=== PATIENT | male | born 1960 | race Caucasian/White ===

== ENCOUNTER 2021-11-02 11:57 | Emergency (ER) | payer OTHER ==
[~2021-11-02] VITALS: Ht 175.3 cm; Wt 83.9 kg
[2021-11-02] MEDS ORDERED: ALBUTEROL SULFATE HFA 8GM INHALATION AEROSOL INH PRN (12:30)
[2021-11-02 12:49] LABS: BASOPHILS % 0.3 % (0.0-1.0); EOSINOPHILS % 0.1 % (0.0-6.0); HEMATOCRIT 48.6 % (38.2-49.6); HEMOGLOBIN 15.9 g/dL (14.0-18.0); LYMPHOCYTES # (AUTO) 1.2 (1.0-3.2); MEAN CORPUSCULAR HEMOGLOBIN 27.9 pg (28-32); MEAN CORPUSCULAR HGB CONC 32.7 g/dL (31-35); MEAN CORPUSCULAR VOLUME 85.3 fL (81-99); MONOCYTES # (AUTO) 0.7 (0.2-0.8); MONOCYTES % 9.5 % (4.4-11.3); NEUTROPHILS # (AUTO) 5.7 (2.1-6.9); NEUTROPHILS % 73.6 % (38.7-80.0); PLATELET COUNT 322 x10e3/uL (140-360); RED CELL DISTRIBUTION WIDTH 12.5 % (11.7-14.4)
[2021-11-02 13:08] LABS: ALBUMIN 3.3 g/dL (3.5-5.0); ALBUMIN/GLOBULIN RATIO 0.8 (0.8-2.0); ANION GAP 14.1 mmol/L (8-16); CALCIUM 9.7 mg/dL (8.4-10.2); CREATININE, SERUM 0.91 mg/dL (0.72-1.25); POTASSIUM 4.1 mmol/L (3.5-5.1)
[2021-11-02 14:35] LABS: INR 1.05; PROTHROMBIN TIME 14.4 seconds (11.9-14.5)
[2021-11-02] MEDS ORDERED: BENZONATATE200 MG PO (14:39)
[2021-11-02] MEDS ORDERED: DECADRON4 M1 PO (14:39)
[2021-11-02] MEDS ORDERED: PROAIR HFA INH8.5 GM PO (14:39)
[2021-11-02] MEDS ORDERED: AZITHROMYCIN250 MG PO (14:39)
[2021-11-02] MEDS ORDERED: DEXAMETHASONE SOD PHOS 10 MG/1 ML VIAL IV SCH (21:00)
== END 2021-11-02 15:05 | disposition home or self-care (01) ==
LOC: ER 12:19
DX: U07.1 COVID-19 (principal); R05.9 Cough, unspecified; J44.1 Chronic obstructive pulmonary disease with (acute) exacerbation; J90 Pleural effusion, not elsewhere classified; R06.02 Shortness of breath
CPT/HCPCS: 36415; 71045; 80053; 83880; 84484; 85025; 85610; 93005; 94664; 94799; 99284; J1100; U0002

== ENCOUNTER → 2024-08-02 | Outpatient (RCR) | payer MEDICARE ==
[~2024-08-02] MED LIST: AZITHROMYCIN250 MG PO; BENZONATATE200 MG PO; DECADRON4 M1 PO; PROAIR HFA INH8.5 GM PO
== END ==
LOC: ST 07-18 13:56 → PT 07-18 14:00 → OT 07-18 14:23 → ST 07-19 11:00 → PT 07-26 12:51 → OT 07-26 14:00 → PT 07-31 09:00
PROVIDERS: ATTEND Family Medicine
DX: I69.951 Hemiplegia and hemiparesis following unspecified cerebrovascular disease affecting right dominant side (principal)
CPT/HCPCS: 92523

== ENCOUNTER → 2024-08-28 | Outpatient (REF) | payer MEDICARE | LOC: DX 11:28 | PROVIDERS: ATTEND Family Medicine | DX: I69.898 Other sequelae of other cerebrovascular disease (principal) | CPT/HCPCS: 74230 ==

== ENCOUNTER → 2024-10-02 | Outpatient (REF) | payer MEDICARE | LOC: DX 10:49 | PROVIDERS: ATTEND Family Medicine | DX: I69.351 Hemiplegia and hemiparesis following cerebral infarction affecting right dominant side (principal); I10 Essential (primary) hypertension; E78.5 Hyperlipidemia, unspecified; J44.9 Chronic obstructive pulmonary disease, unspecified | CPT/HCPCS: 74230 ==

== ENCOUNTER → 2024-11-02 | Outpatient (RCR) | payer MEDICARE | LOC: OT 10-10 07:32 | PROVIDERS: ATTEND Family Medicine | DX: I69.951 Hemiplegia and hemiparesis following unspecified cerebrovascular disease affecting right dominant side (principal) ==

== ENCOUNTER 2024-11-28 11:00 | Outpatient (RCR) | payer MEDICARE | END 2024-11-30 | LOC: OT 11:00 | PROVIDERS: ATTEND Family Medicine | DX: I69.951 Hemiplegia and hemiparesis following unspecified cerebrovascular disease affecting right dominant side (principal) ==

== ENCOUNTER 2024-12-05 06:16 | Outpatient (RCR) | payer MEDICARE | END 2024-12-31 | LOC: OT 06:16 | PROVIDERS: ATTEND Family Medicine | DX: I69.951 Hemiplegia and hemiparesis following unspecified cerebrovascular disease affecting right dominant side (principal) ==